=== PATIENT | female | born 1970 | race Caucasian/White ===

== ENCOUNTER 2019-10-17 13:24 | Emergency (ER) | payer MEDICAID, OTHER ==
[~2019-10-17] VITALS: Ht 170.2 cm; Wt 80.0 kg
[2019-10-17] MEDS ORDERED: CABE0.5T PO (14:01)
[2019-10-17] MEDS ORDERED: CLON0.1T2 PO (14:01)
[2019-10-17] MEDS ORDERED: CITA10TA8 PO (14:01)
[2019-10-17 14:02] VITALS: BP 127/76
--- NOTE | 2019-10-17 14:04 | NUR ---
PATIENT COMES IN TODAY C/O OF PAIN WITH URINATION. PATIENT WAS RECENTLY DX WITH UTI THROUGH GATZKE AND PLACED ON MACROBID AND NITROFURANTOIN WHICH SHE FINISHED 10/15/2019. PAIN WITH URINATION STARTED AGAIN YESTERDAY. PATIENT A&OX4, NO C/O OF PAIN. URINE SAMPLE COLLECTED AND SENT. NO FURTHER NEEDS AT THIS TIME.
[2019-10-17 14:09] LABS: MICROSCOPIC AUTO
--- NOTE | 2019-10-17 14:49 | NUR ---
Patient given discharge instructions and they have confirmed that they understand the instructions. Patient gathered all belongings. Patient ambulatory with steady gait.
== END 2019-10-17 14:51 | disposition home or self-care (01) ==
LOC: ED 14:40
DX: N30.00 Acute cystitis without hematuria (principal); I10 Essential (primary) hypertension
CPT/HCPCS: 81001; 87077; 87086; 99283

== ENCOUNTER 2019-10-18 14:30 | Emergency (ER) | payer OTHER, MEDICAID ==
[~2019-10-18] VITALS: Ht 170.2 cm; Wt 80.0 kg
[~2019-10-18 14:30] MED LIST: CABE0.5T PO; CITA10TA8 PO; CLON0.1T2 PO
[2019-10-18] MEDS ORDERED: PHENAZOPYRIDINE 200 MG TABLET PO ONE (15:00)
[2019-10-18 15:28] LABS: BASOPHILS # (AUTO) 0.06 x10^3/uL (0-0.1); BASOPHILS % (AUTO) 1 % (0-1); EOSINOPHILS # (AUTO) 0.11 x10^3/uL (0-0.4); EOSINOPHILS % (AUTO) 1 % (1-7); LYMPHOCYTES # (AUTO) 2.63 x10^3/uL (1-3.4); LYMPHOCYTES % (AUTO) 30 % (22-44); MD NO; MEAN CORPUSCULAR HEMOGLOBIN 30.2 pg (27.0-34.8); MEAN CORPUSCULAR HGB CONC 32.8 g/dL (32.4-35.8); MEAN CORPUSCULAR VOLUME 91.9 fL (80-100); MEAN PLATELET VOLUME 6.6 fL (7.4-10.4); MONOCYTES # (AUTO) 0.52 x10^3/uL (0.2-0.8); MONOCYTES % (AUTO) 6 % (2-9); NEUTROPHILS # (AUTO) 5.59 x10^3/uL (1.8-6.8); NEUTROPHILS % (AUTO) 63 % (42-75); PLATELET COUNT 334 x10^3/uL (130-400); RED BLOOD COUNT 4.04 x10^6/uL (3.82-5.3); RED CELL DISTRIBUTION WIDTH 13.3 % (9.6-15.2)
[2019-10-18 15:36] LABS: ALBUMIN 3.8 g/dL (3.4-5.0); ANION GAP 7 mmol/L (5-15); CALCIUM 8.8 mg/dL (8.5-10.1); CHLORIDE 95 mmol/L (98-107); CREATININE 0.92 mg/dL (0.55-1.02)
--- NOTE | 2019-10-18 16:05 | NUR ---
CUT FILE CLERK: PT STEADY UPON AMBULATION TO ROOM AT THIS TIME.
[2019-10-18] MEDS ORDERED: PHENAZOPYRIDINE 200 MG TABLET ONE (16:13)
--- NOTE | 2019-10-18 16:24 | NUR ---
PT PACING AROUND ROOM, CRYING, ANGRY. STATES, "I WAS HERE YESTERDAY, I TOLD THE DOCTOR WHAT ANTIBIOTIC I NEED. IT'S BURNING, I CAN'T HANDLE THIS!" PT MEDICATED WITH PYRIDIUM PER ORDERS. STATES SHE ALREADY VOIDED AND CAN'T VOID AGAIN FOR URINE SAMPLE.
--- NOTE | 2019-10-18 16:30 | NUR ---
CALLED LAB TO LOCATE URINE SPECIMEN FROM TRIAGE. PER ANALYTICS DEVELOPER, SPECIMEN WAS IN SAMPLE ROOM AND THEY WILL RUN IT NOW.
[2019-10-18 16:53] LABS: MICROSCOPIC AUTO
[2019-10-18] MEDS ORDERED: CEFDINIR 300 MG CAPSULE ONE (17:47)
[2019-10-18 17:53] VITALS: BP 132/81
--- NOTE | 2019-10-18 17:55 | NUR ---
D/C INSTRUCTIONS, MEDS & F/U APPT RV'WD WITH PT, SHE VERBALIZES UNDERSTANDING. PT MEDICATED WITH FIRST DOSE OF OMNICEF PER HER REQUEST AND ER PA ORDER. RX GIVEN X1. PT AMBULATED OUT OF ED WITHOUT DIFFICULTY.
[2019-10-18] MEDS ORDERED: CEFDINIR 300 MG CAPSULE PO ONE (18:00)
== END 2019-10-18 17:54 | disposition home or self-care (01) ==
LOC: ED 17:35
DX: N30.00 Acute cystitis without hematuria (principal); R30.0 Dysuria; I10 Essential (primary) hypertension
CPT/HCPCS: 36415; 80048; 81001; 82040; 85025; 87086; 99283

== ENCOUNTER 2019-11-01 17:10 | Emergency (ER) | payer OTHER, MEDICAID ==
[~2019-11-01] VITALS: Ht 170.2 cm; Wt 81.0 kg
[2019-11-01 17:47] LABS: BASOPHILS # (AUTO) 0.02 x10^3/uL (0-0.1); BASOPHILS % (AUTO) 0 % (0-1); EOSINOPHILS # (AUTO) 0.07 x10^3/uL (0-0.4); EOSINOPHILS % (AUTO) 1 % (1-7); LYMPHOCYTES # (AUTO) 2.16 x10^3/uL (1-3.4); LYMPHOCYTES % (AUTO) 32 % (22-44); MD NO; MEAN CORPUSCULAR HEMOGLOBIN 30.6 pg (27.0-34.8); MEAN CORPUSCULAR HGB CONC 33.3 g/dL (32.4-35.8); MEAN CORPUSCULAR VOLUME 91.9 fL (80-100); MEAN PLATELET VOLUME 7.6 fL (7.4-10.4); MONOCYTES # (AUTO) 0.45 x10^3/uL (0.2-0.8); MONOCYTES % (AUTO) 7 % (2-9); NEUTROPHILS # (AUTO) 4.04 x10^3/uL (1.8-6.8); NEUTROPHILS % (AUTO) 60 % (42-75); PLATELET COUNT 293 x10^3/uL (130-400); RED BLOOD COUNT 3.67 x10^6/uL (3.82-5.3); RED CELL DISTRIBUTION WIDTH 12.9 % (9.6-15.2)
[2019-11-01 17:56] LABS: ALANINE AMINOTRANSFERASE 27 U/L (12-78); ANION GAP 7 mmol/L (5-15); CALCIUM 8.2 mg/dL (8.5-10.1); CHLORIDE 101 mmol/L (98-107)
[2019-11-01 17:59] LABS: ALKALINE PHOSPHATASE 71 U/L (45-117); BILIRUBIN,TOTAL 0.3 mg/dL (0.2-1.0); TOTAL PROTEIN 6.7 g/dL (6.4-8.2)
--- NOTE | 2019-11-01 18:04 | NUR ---
Pt resting in gurney comfortably, pt refused to have straight cath performed for urine specimen until she recieved pain medications.
[2019-11-01] MEDS ORDERED: LORazepam 1MG TABLET ONE (18:13)
[2019-11-01] MEDS ORDERED: LORazepam 1MG TABLET PO ONE (18:30)
--- NOTE | 2019-11-01 18:40 | NUR ---
Straight cath performed, ED provider notified that specimen could be contaminated from blood that was present in urethral opening. no further orders received.
--- NOTE | 2019-11-01 18:55 | NUR ---
Report to chani CARDOZO.
[2019-11-01] MEDS ORDERED: PHENAZOPYRIDINE 200 MG TABLET PO ONE (19:00)
[2019-11-01] MEDS ORDERED: PHENAZOPYRIDINE 200 MG TABLET ONE (19:01)
--- NOTE | 2019-11-01 19:07 | NUR ---
pt medicated per mar at this time.
[2019-11-01 19:22] LABS: MICROSCOPIC INDICATED
--- NOTE | 2019-11-01 19:57 | NUR ---
PT TO CT VIA [facility] AT THIS TIME.
[2019-11-01] MEDS ORDERED: SODIUM CHLORIDE FLUSH 10ML SYR IVF ONE (20:00)
[2019-11-01] MEDS ORDERED: OMNIPAQUE 350 MG/ML, 100ML BOTTLE ONE (20:10)
[2019-11-01 21:15] VITALS: BP 134/77
--- NOTE | 2019-11-01 21:38 | NUR ---
PT D/C WITH D/C SUMMARY AND SCRIPTS. ALL QUESTIONS ANSWERED AT BS BY DR MATTHEWS. PT VERBALIZES UNDERSTANDING OF NEED TO F/U OP WITH ABSORBER OPERATOR AND UROLOGY. ALL RESOURCES PROVIDED TO PT PRIOR TO D/C. PT IV D/C WITH TIP INTACT. PT VSS AND UPDATED IN EMR AND PT AMBULATES TO REGISTRATION DESK WITH STEADY GAIT FOR D/C HOME WITH PARTNER.
== END 2019-11-01 21:40 ==
LOC: ED 19:01
DX: N93.8 Other specified abnormal uterine and vaginal bleeding (principal); I10 Essential (primary) hypertension; Z87.891 Personal history of nicotine dependence
CPT/HCPCS: 36415; 74177; 80053; 81001; 85025; 87086; 99285; Q9967

== ENCOUNTER 2020-01-13 07:38 | Emergency (ER) | payer MEDICAID, OTHER ==
[~2020-01-13] VITALS: Ht 170.2 cm; Wt 79.0 kg
[2020-01-13 08:02] VITALS: BP 127/66
[2020-01-13] MEDS ORDERED: PHENAZOPYRIDINE 200 MG TABLET ONE (08:45)
[2020-01-13] MEDS ORDERED: CEFDINIR 300 MG CAPSULE ONE (08:46)
--- NOTE | 2020-01-13 08:47 | NUR ---
PT C/O BURNING IN VAGINAL AREA. PT STATES IT WORSENS WHEN URINATING AND THEIR IS SOME URINARY HESITANCY. PT USES VAGINAL OINTMENT FOR MENOPAUSE.
[2020-01-13] MEDS ORDERED: HYDROcodone/APAP 5/325 TABLET PO ONE (09:00)
[2020-01-13] MEDS ORDERED: CEFDINIR 300 MG CAPSULE PO ONE (09:00)
[2020-01-13] MEDS ORDERED: PHENAZOPYRIDINE 200 MG TABLET PO ONE (09:00)
[2020-01-13 09:08] LABS: MICROSCOPIC INDICATED
[2020-01-13] MEDS ORDERED: HYDROcodone/APAP 5/325 TABLET ONE (09:10)
--- NOTE | 2020-01-13 09:14 | NUR ---
PT MEDICATED PER MAR
--- NOTE | 2020-01-13 10:58 | NUR ---
AFTER MD DISCUSSION ABOUT AWAITING CULTURE AND NO ANTIBIOTIC PRESCRIPTION, ANSWERED FURTHER QUESTIONS ABOUT SAME. PT TO BE DISCHARGED.
== END 2020-01-13 11:10 | disposition home or self-care (01) ==
LOC: ED 09:01
DX: N76.0 Acute vaginitis (principal); I10 Essential (primary) hypertension
CPT/HCPCS: 81001; 87086; 99284